=== PATIENT | male | born 1965 ===

== ENCOUNTER → 2018-12-17 | Outpatient (REF) | LOC: M LAB LCGH 13:26 | PROVIDERS: ATTEND Surgery | DX: Z12.11 Encounter for screening for malignant neoplasm of colon (principal); K29.50 Unspecified chronic gastritis without bleeding; K21.0 Gastro-esophageal reflux disease with esophagitis ==

== ENCOUNTER → 2019-01-15 | Outpatient (REF) | LOC: M LAB LCGH 15:26 | PROVIDERS: ATTEND Nurse Practitioner Family | DX: L57.0 Actinic keratosis (principal); C44.519 Basal cell carcinoma of skin of other part of trunk ==